=== PATIENT | male | born 1995 | race Caucasian/White ===

== ENCOUNTER 2021-06-30 17:30 | Emergency (ER) | payer SELFPAY ==
[~2021-06-30] VITALS: Ht 185.4 cm; Wt 70.3 kg
[2021-06-30 17:30] VITALS: BP_SYST 138
--- NOTE | 2021-06-30 17:30 | NUR ---
Patient triaged and placed in waiting room. VSS and patient appears in no acute distress at this time. Accompanied by GIRLFRIEND, awaiting available bed, and MD notified of need for MSE.
--- NOTE | 2021-06-30 17:55 | NUR ---
DR BUTCHER TO TRIAGE AREA TO EVALUATE PT, UNABLE TO LOCATE PT.
--- NOTE | 2021-06-30 18:00 | NUR ---
ACCORDING TO ADMITTING STAFF, PTS GIRLFRIEND CALLED [facility] AND SPOKE WITH SOMEONE THERE, SHE DECIDED TO TAKE HIM THERE FOR A PSYCHIATRIC TREATMENT, PT LEFT WITHOUT BEING SEEN BY
== END 2021-06-30 18:00 | disposition left against medical advice (07) ==
LOC: SED 17:30
DX: S09.90XA Unspecified injury of head, initial encounter (principal); X58.XXXA Exposure to other specified factors, initial encounter; Y93.89 Activity, other specified; Y92.89 Other specified places as the place of occurrence of the external cause; Y99.8 Other external cause status; Z53.21 Procedure and treatment not carried out due to patient leaving prior to being seen by health care provider